=== PATIENT | male | born 1980 | race Caucasian/White ===

== ENCOUNTER 2025-02-27 16:31 | Emergency (ER) | payer OTHER ==
[2025-02-27] MEDS: Diphtheria,Pertussis(Acell),Tetanus Vaccine 0.5 ML Syringe IM ONE (16:48)
== END 2025-02-27 17:09 | disposition home or self-care (01) ==
LOC: LB.ED 16:31
DX: S60.352A Superficial foreign body of left thumb, initial encounter (principal); Z23 Encounter for immunization; W45.8XXA Other foreign body or object entering through skin, initial encounter; Y93.89 Activity, other specified
CPT/HCPCS: 90471; 90715; 99283-25